=== PATIENT | female | born 1990 | race Caucasian/White ===

== ENCOUNTER 2018-01-15 21:37 | Emergency (ER) | payer MEDICAID ==
[~2018-01-15] VITALS: Ht 154.9 cm; Wt 79.2 kg
[2018-01-15 21:38] VITALS: BP 116/79
[2018-01-15] MEDS ORDERED: LIDOCAINE-MPF 2% ,5ML ONE (22:02)
[2018-01-15] MEDS ORDERED: LIDOCAINE 2%, 10ML INFIL ONE (22:30)
[2018-01-15] MEDS ORDERED: DIPH,PERTUSS(ACELL),TET VAC/PF 0.5 ML IM-VACC ONE ×2 (22:30→22:55)
== END 2018-01-16 00:20 | disposition home or self-care (01) ==
LOC: ED 22:42
DX: S61.411A Laceration without foreign body of right hand, initial encounter (principal); W25.XXXA Contact with sharp glass, initial encounter; Y93.89 Activity, other specified; Y99.8 Other external cause status; Y92.009 Unspecified place in unspecified non-institutional (private) residence as the place of occurrence of the external cause
CPT/HCPCS: 12042; 73130; 90471; 90715; 99284; J3490; 29260